=== PATIENT | male | born 1995 | race African-American/Black ===

== ENCOUNTER 2017-08-17 22:37 | Emergency (ER) | payer OTHER ==
[~2017-08-17] VITALS: Ht 167.6 cm; Wt 59.0 kg
[2017-08-17] MEDS ORDERED: TRAMADOL 50 MG50 MG PO (23:48)
[2017-08-17] MEDS ORDERED: CYCLOBENZAPRINE5 MG PO (23:48)
[2017-08-17 23:57] VITALS: BP 102/49
== END 2017-08-18 00:08 | disposition home or self-care (01) ==
LOC: ER 22:37
DX: S16.1XXA Strain of muscle, fascia and tendon at neck level, initial encounter (principal); S30.0XXA Contusion of lower back and pelvis, initial encounter; V89.2XXA Person injured in unspecified motor-vehicle accident, traffic, initial encounter; Y92.89 Other specified places as the place of occurrence of the external cause; Y93.89 Activity, other specified; Y99.8 Other external cause status